=== PATIENT | male | born 1960 | race Asian ===

== ENCOUNTER 2016-06-06 07:32 | Emergency (ER) | payer MEDICAID ==
[~2016-06-06] VITALS: Ht 162.6 cm; Wt 72.6 kg
[~2016-06-06 07:32] MED LIST: ACET-863 PO; AML5T PO; ATOR20TA50 PO; CARI350T21 PO; CHOL20007 PO; CITA20TA3 PO; FLU05NSL; LEVE100012 PO; NOR5T PO; PROP60CA8 PO
[2016-06-06 09:16] LABS: Urine RBC None Seen /hpf (0 - 3)
[2016-06-06 09:20] LABS: Basophils # (auto) 0 uL; Basophils % (auto) 0.1 % (0.0-2.0); Eosinophils # (auto) 0.1 uL; Eosinophils % (auto) 0.6 % (0.0-7.0); Hematocrit 49.1 % (41.0-53.0); Hemoglobin 15.6 g/dL (13.5-17.5); Lymphocytes # (auto) 2.4 uL; Lymphocytes % (auto) 25.8 % (10.0-50.0); Mean Corpuscular Hemoglobin 30.1 pg (28.0-32.0); Mean Corpuscular Hgb Conc. 31.9 g/dL (32.0-36.0); Mean Corpuscular Volume 94.3 fL (80.0-100.0); Mean Platelet Volume 7.6 fL (7.4-10.4); Monocytes # (auto) 0.7 uL; Monocytes % (auto) 7.4 % (0.0-12.0); Neutrophils # (auto) 6.3 uL; Neutrophils % (auto) 66.1 % (37.0-80.0); Platelet Count (auto) 269 10^3/uL (140-450); White Blood Cell 9.5 10^3/uL (4.4-10.8)
[2016-06-06 09:24] LABS: Urine Bilirubin Negative (Negative); Urine Blood Negative /uL (Negative); Urine Color Yellow (Yellow); Urine Glucose Normal (Normal); Urine Ketone Negative (Negative); Urine Mucus FEW (None Seen); Urine Nitrite Negative (Negative); Urine Urobilinogen Normal (Negative); Urine pH 5.5 (5.0-8.0)
[2016-06-06 09:46] LABS: Albumin 4.2 g/dL (3.4-5.0); BUN/Creatinine Ratio 13.5; Calcium 8.7 mg/dL (8.5-10.1)
[2016-06-06 09:49] LABS: Total Protein 7.9 g/dL (6.4-8.2)
[2016-06-06] MEDS ORDERED: SODIUM CHLORIDE 0.9% 1,000 ML IVB ONE (12:11)
[2016-06-06 14:00] LABS: INR 0.99 (0.9-1.15); Partial Thromboplastin Time 25.9 sec (22.64-33.71); Prothrombin Time 10.2 sec (9.37-12.3)
[2016-06-06] MEDS ORDERED: ACETAMINOPHEN 325 MG TAB PO ONE (14:15)
[2016-06-06 16:11] VITALS: BP 118/74
== END 2016-06-06 16:11 | disposition home or self-care (01) ==
LOC: ER 07:37
DX: R56.9 Unspecified convulsions (principal); M19.90 Unspecified osteoarthritis, unspecified site; I10 Essential (primary) hypertension; F12.10 Cannabis abuse, uncomplicated
CPT/HCPCS: 36415; 71010; 80053; 81001; 82542; 83735; 85025; 85610; 85730; 94761; 96360